=== PATIENT | male | born 1970 | race Caucasian/White ===

== ENCOUNTER → 2025-04-10 | Day surgery (SDC) | payer BC ==
[~2025-04-10] MED LIST: ALFUZOSIN HCL10 MG; AMLOD-VALSA-HC1 EAC4 PO; ASPIRIN81 MG PO; BIKTARVY 50-201 EACH; CRESTOR40 MG; GLUCAGON FOR INJ 1 MG VIAL ONE; GLYCOPYRRO0.2 MG/1 M PO; HYOSCYAMINE SULFATE 0.5 MG/ML INJ ONE; ICOSAPENT ETHYL1 GM; LACTATED RINGER'S 1,000 ML ONE; LEXAPRO20 MG PO; LIDOCAINE HCL 2% LOCAL INJ 5 ML SDV VIAL INJ ONE; MIDAZOLAM HCL 2 MG/2 ML VIAL ONE; MOUNJARO12.5 MG/0.; NAPROXEN250 MG PO; PROPOFOL IV EMULSION 50 ML IV ONE; TRIAMCINOLONE A15 G1 TOP; VITAMIN B121000 MCG; VITAMIN C1000 MG PO; VITAMIN D31 ML; VYVANSE30 MG
[2025-04-10 14:08] VITALS: BP 116/72; PULSE 85; RESP 17; O2SAT 98
== END | disposition home or self-care (01) ==
LOC: OR 10:08
PROVIDERS: ATTEND Internal Medicine Gastroenterology
DX: Z12.11 Encounter for screening for malignant neoplasm of colon (principal); K51.40 Inflammatory polyps of colon without complications; D12.3 Benign neoplasm of transverse colon; K57.30 Diverticulosis of large intestine without perforation or abscess without bleeding; K64.8 Other hemorrhoids; I10 Essential (primary) hypertension; E11.9 Type 2 diabetes mellitus without complications; E78.00 Pure hypercholesterolemia, unspecified; N40.0 Benign prostatic hyperplasia without lower urinary tract symptoms; F90.9 Attention-deficit hyperactivity disorder, unspecified type; F41.9 Anxiety disorder, unspecified; B20 Human immunodeficiency virus [HIV] disease; Z68.32 Body mass index [BMI] 32.0-32.9, adult; Z79.85 Long-term (current) use of injectable non-insulin antidiabetic drugs; Z79.82 Long term (current) use of aspirin; Z79.899 Other long term (current) drug therapy; Z01.810 Encounter for preprocedural cardiovascular examination
CPT/HCPCS: 36415; 45385; 82948; 93005; J1610; J1980; J2003; J2250; J2704; J7121; 45378